=== PATIENT | female | born 1960 | race Caucasian/White ===

== ENCOUNTER 2020-08-01 06:05 | Outpatient (CLI) | payer MEDICARE, MEDICAID ==
[~2020-08-01] VITALS: Ht 152.4 cm; Wt 28.6 kg
--- NOTE | ~2020-08-01 | OP ---
PATIENT NAME: CINDY PRATT MEDICAL RECORD: [id number] :64 LOCATION:D.OPS ADMISSION DATE: SURGEON: AARON SHAIKH MD DATE OF OPERATION: 08/01/2020 PREOPERATIVE DIAGNOSES: 1. Right breast invasive ductal carcinoma. 2. Hypertension. 3. Hypercholesterolemia. 4. Chronic obstructive pulmonary disease. POSTOPERATIVE DIAGNOSES: 1. Right breast invasive ductal carcinoma. 2. Hypertension. 3. Hypercholesterolemia. 4. Chronic obstructive pulmonary disease. PROCEDURE: Right breast lumpectomy with sentinel lymph node biopsy. SURGEON: Aaron Shaikh MD DESCRIPTION OF PROCEDURE: Preoperatively, the patient underwent lymphoscintigraphy showing uptake in the patient's right axilla. The patient's right breast and axilla were prepped and draped in sterile fashion. Using ultrasound guidance, I could find the mass and the indwelling clip in the patient's right upper outer quadrant about the 10 o'clock position. A transverse incision was made overlying this and I could feel a palpable mass present in the tissues. I went ahead and did a large core of tissue including some surrounding fatty tissue down to the pectoral fascia. This core of tissue was marked appropriately and sent off to Mammography, where imaging showed that the clip was present in the middle of the specimen. The wound bed was treated with electrocautery to stop any bleeding and then we irrigated out the wound bed with sterile water. The subcutaneous tissues were reapproximated with interrupted 3-0 Vicryl and the skin was closed with running subcuticular 5-0 Monocryl. We then approached the right axilla. A transverse incision was made on the anterior aspect of the axilla and electrocautery was used to dissect through the subcutaneous tissues and the fascial layer. Once we were in the axillary space, I was able to find an enlarged lymph node. This lymph node was clipped of all of its ducts and excised. Final readings were around 750. I inspected the remainder of the axilla and did not find any other lymph nodes that required removal. The wound bed was irrigated out with normal saline. The subcutaneous tissues were reapproximated with interrupted 3-0 Vicryl and the skin was closed with running subcuticular 5-0 Monocryl. A total of 10 mL of 0.25% with epinephrine was infused into the surrounding tissues and the wounds were dressed appropriately. COMPLICATIONS: None. CONDITION: Stable. ANESTHESIA: General endotracheal and local. BLOOD LOSS: Minimal. 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
[~2020-08-01 06:05] MED LIST: DOXEPIN HCL10 MG PO; LISINOPRIL-HCT1 EAC8 PO; MIRAPEX1.5 MG PO; PROTONIX40 MG PO; TRAZODONE HCL100 MG PO; ULTRAM50 MG PO; VESICARE10 MG PO
[2020-08-01 06:29] LABS: BASOPHILS 0.2 % (0-2); HEMATOCRIT 42.6 % (36.0-48.0); HEMOGLOBIN 13.6 g/dL (12-16); IMMATURE GRANULOCYTES 0.2 % (0-5); LYMPHOCYTES 27.6 % (15-50); MCH 28.5 pg (26.0-34.0); MCHC 31.9 g/dL (31.0-37.0); MCV 89.1 fL (80.0-100.0); MEAN PLATELET VOLUME 9.4 fL (7.4-10.4); MONOCYTES 8.6 % (2-11); NEUTROPHILS 60.4 % (40-80); PLATELET COUNT 322 10x3/uL (130-400); RBC 4.78 10x6/uL (4.00-5.40); RDW 14.7 % (11.5-14.5); WBC 8.4 10x3/uL (4.8-10.8)
[2020-08-01 06:32] LABS: APTT 30.8 SECONDS (22.8-39.4); INR 0.87 (0.85-1.17); PROTIME 11.8 SECONDS (11.6-15.0)
[2020-08-01 06:34] LABS: ANION GAP 10.2 mmol/L (8-16); CALCIUM 9.6 mg/dL (8.5-10.1); CARBON DIOXIDE 29.2 mmol/L (21.0-32.0); CREATININE - SERUM 1.1 mg/dL (0.6-1.3); POTASSIUM - SERUM 4.4 mmol/L (3.5-5.1)
[2020-08-01 07:35] VITALS: BP 140/69; Ht 152.4 cm; Wt 28.6 kg
--- NOTE | 2020-08-01 08:24 | NUR ---
Patient was scheduled for a right breast lymphoscintigraphy on 08/01/2020. Consent was obtained. Patient arrived to the nuclear medicine department at approximately 0750 and positioned supine on the table. The attending physician, Dr. Ivan entered the room and a time out was called at 0800. Area was prepped and 508uCi Tc-99m Tilmanocept was injected subcutaneously at 0805. Imaging followed.
[2020-08-01] MEDS ORDERED: HYDROCODON-ACE1 EA10 PO (14:40)
== END 2020-08-01 16:45 | disposition home or self-care (01) ==
LOC: D.OPS 06:05 → D.NM 06:05 → D.OPS 16:45
PROVIDERS: Anesthesiology; ATTEND Surgery
DX: C50.911 Malignant neoplasm of unspecified site of right female breast (principal); J44.9 Chronic obstructive pulmonary disease, unspecified; I10 Essential (primary) hypertension; F17.200 Nicotine dependence, unspecified, uncomplicated; E78.00 Pure hypercholesterolemia, unspecified

== ENCOUNTER → 2021-03-05 12:29 | Outpatient (CLI) | payer MEDICARE, MEDICAID ==
[2020-08-01 07:35] VITALS: BMI 123.2
[~2021-03-05 12:29] MED LIST changes: +HYDROCODON-ACE1 EA10 PO
== END | disposition home or self-care (01) ==
LOC: D.US 02-08 14:00
PROVIDERS: ATTEND Surgery
DX: N63.11 Unspecified lump in the right breast, upper outer quadrant (principal); Z85.3 Personal history of malignant neoplasm of breast

== ENCOUNTER → 2021-03-13 13:39 | Outpatient (CLI) | payer MEDICARE, MEDICAID ==
[2020-08-01 07:35] VITALS: BMI 123.2
== END | disposition home or self-care (01) ==
LOC: D.US 13:39
PROVIDERS: ATTEND Surgery
DX: N63.11 Unspecified lump in the right breast, upper outer quadrant (principal)